=== PATIENT | female | born 2000 | race African-American/Black ===

== ENCOUNTER 2024-08-25 09:35 | Outpatient (REF) | payer MEDICAID, SELFPAY ==
[2024-08-25 10:59] LABS: MANUAL DIFF FLAG NO
[2024-08-25 11:10] LABS: Basophils Percent Auto 0.5 % (0-2); Eosinophils Absolute Auto 0.1 X10*3/uL (0.0-0.4); Eosinophils Percent Auto 1.6 % (0-4); Hematocrit 41.7 % (37.0-47.0); Hemoglobin 13.7 g/dl (12.0-16.0); Imm Gran Abs Auto 0.03 X10*3/uL (0.00-0.03); Imm Gran Pct Auto 0.5 % (0.0-0.4); Lymphocytes Absolute Auto 1.7 X10*3/uL (1.2-4.9); Lymphocytes Percent Auto 26.3 % (20-40); Mean Corpuscular HGB Conc 32.9 g/dl (31.0-35.0); Mean Corpuscular Hemoglobin 26.9 pg (27.0-33.0); Mean Corpuscular Volume 81.8 fL (80.0-98.0); Mean Platelet Volume 11.2 fL (9.4-12.3); Monocytes Absolute Auto 0.7 X10*3/uL (0.1-1.2); Monocytes Percent Auto 11.3 % (2-11); Neutrophils Absolute Auto 3.8 x10*3/uL (2.0-8.3); Neutrophils Percent Auto 59.8 % (45-73); Platelet Count 271 X10*3/uL (160-400); Red Cell Distribution Width 13.9 % (11.0-16.0); White Blood Count 6.4 X10*3/uL (4.8-10.8)
[2024-08-25 11:37] LABS: Alanine Aminotransferase 12 U/L (0-31); Albumin Level 3.9 g/dL (3.5-5.0); Alkaline Phosphatase 64 U/L (39-117); Anion Gap 11 (12-20); Aspartate Amino Transferase 20 U/L (5-31); Bilirubin Total 0.5 mg/dL (0.0-1.0); Blood Urea Nitrogen 9 mg/dL (9-16); Carbon Dioxide 21 mmol/L (22-29); Chloride 113 mmol/L (96-108); Cholesterol 123 mg/dL (<200); Estimated Glomerular Filt Rate > 60; Glucose Random 96 mg/dL (60-115); HDL Cholesterol 41 mg/dL (>40); LDL Cholesterol Calculated 69 mg/dL (<100); Potassium 3.9 mmol/L (3.3-5.1); Sodium 141 mmol/L (135-145); Total Protein 7.5 g/dL (6.5-8.0); Triglycerides 67 mg/dL (<150)
[2024-08-25 11:45] LABS: Syphilis Screen Nonreactive (Nonreactive)
[2024-08-25 11:57] LABS: TSH reflex Free T4 0.62 uIU/mL (0.32-4.0)
[2024-08-25 12:48] LABS: HBS Num1 703.34 mIU/mL (0-7.99); HBc Num1 0.17 S/CO (0.00-0.79); HBsAGNum1 0.28 S/CO (0.00-0.99); HIV AB/AG Nonreactive (Nonreactive); HIV Num 1 0.05 S/CO (0.00-0.99); Hepatitis A Antibody IgM 0.24 Index (0-0.79); Hepatitis B Core Antibody Nonreactive (Nonreactive); Hepatitis B Surface Antigen Negative (Negative); ~HepC Num1 0.18 S/CO (0.00-0.79); ~Hepatitis A Antibody IgM Nonreactive (Nonreactive); ~Hepatitis B Surface Antibody REACTIVE (Nonreactive); ~Hepatitis C Antibody Nonreactive (Nonreactive)
[2024-08-25 12:50] LABS: Reflex LDLD? No
== END 2024-08-25 09:36 | disposition home or self-care (01) ==
LOC: HO.HHCL 09:35
PROVIDERS: Visit Provider Internal Medicine
DX: F33.41 Major depressive disorder, recurrent, in partial remission (principal); E66.812 Obesity, class 2; E66.09 Other obesity due to excess calories; Z68.39 Body mass index [BMI] 39.0-39.9, adult; J45.30 Mild persistent asthma, uncomplicated
CPT/HCPCS: 36415; 80053; 80061; 82306; 84443; 85025; 86704; 86706; 86709; 86780; 86803; 87340; 87389

== ENCOUNTER 2024-09-18 15:44 | Outpatient (AMB) | payer MEDICAID, SELFPAY ==
[2024-09-18 15:53] VITALS: BP 120/72; PULSE 94; O2SAT 98; BMI 39.9
--- NOTE | 2024-09-18 15:53 | A.OFFVIS_ITS ---
Vital Signs 09/18/24 15:53 Height 5 ft 6 in Weight 247 lb BMI 39.9 BP 120/72 Blood Pressure Location Rt brachial Position Sitting Pulse 94 Pulse Source Pulse Oximeter Pulse Oximetry (%) 98 Oxygen Delivery Method Room Air Intake Visit Reasons: cyst arm Intake Note: Patient states she is here for cyst under her right arm near the armpit. Allergies pollen extracts [POLLEN] Allergy (Unknown, Verified 09/18/24 15:54) UNKNOWN Medication List - Last Reconciled 09/18/24 by Yannick Cardenas MD albuterol sulfate 90 mcg/actuation 2 puffs inhalation Q6H PRN medroxyprogesterone (Depo-Provera) 150 mg IM [id number] HPI HPI cyst arm: Details: [age] year old female referred for a skin lesion on the right upper arm. She says she has had this for a few years now. She denies any changes. She denies any bleeding. She however wants this removed. [facility] Medical History (Updated 09/18/24 @ 16:10 by Yannick Cardenas MD) Skin lesion of right arm Review of Systems Const Denies chills and Denies fever(s) Card Denies chest pain, Denies dyspnea and Denies dyspnea on exertion Resp Denies cough, Denies dyspnea and Denies dyspnea on exertion GI Denies hematochezia and Denies change in bowel habits Denies hematuria Musc Denies back pain and Denies limited range of motion Neuro Denies focal weakness and Denies convulsions Psych Denies depression and Denies mood swings Physical Exam Vital Signs: Last Vital Signs Pulse 94 09/18/24 15:53 BP 120/72 09/18/24 15:53 Pulse Ox 98 09/18/24 15:53 Oxygen Delivery Method Room Air 09/18/24 15:53 BMI result Body Mass Index 39.9 Const General: comfortable and no acute distress Nutritional Appearance: obese Orientation/consciousness: patient oriented x3 Neck Neck: Yes no lymphadenopathy Resp Auscultation: clear to auscultation bilaterally Cardio Rhythm: regular rhythm GI Palpation (GI): Soft to palpation, nontender and no guarding Neuro General: patient oriented x3 Extrem Other: Right upper arm on the inner aspect - soft, fleshy skin mass, about 1.2 cm in widest dimension, well-defined Assessment & Plan Assessment & Plan (1) Skin lesion of right arm: Code(s): L98.9 - Disorder of the skin and subcutaneous tissue, unspecified Category: Medical Plan This appears to be a fibromatous lesion. I explained the technique of excision. I reviewed the risks including but not limited to bleeding, infections, poor healing, as well as the benefits and alternatives. I discussed with the what to expect postoperatively. She wants to proceed. This will be done in the office on her next visit. Coding Level of Care Code New Pt Level 3 (83987) Diagnoses Skin lesion of right arm L98.9
== END 2024-09-18 16:08 | disposition home or self-care (01) ==
LOC: HO.HGS 15:45
PROVIDERS: PCP Family Medicine; Visit Provider Surgery
DX: L98.9 Disorder of the skin and subcutaneous tissue, unspecified (principal)
CPT/HCPCS: 99203

== ENCOUNTER → 2024-09-18 15:44 | Outpatient (BNVA) | payer MEDICAID, SELFPAY | PROVIDERS: PCP Family Medicine; Visit Provider Surgery | DX: L98.9 Disorder of the skin and subcutaneous tissue, unspecified (principal) | CPT/HCPCS: 99202 ==

== ENCOUNTER 2024-10-05 12:43 | Outpatient (REF) | payer MEDICAID, SELFPAY ==
--- OUTSIDE RECORDS SUMMARY | 2024-10-05 16:18 | XMS_ITS | Encounter Summary ---
Author Organization [employer] Address [address] [facility] 7t [place] [address] Care Team Providers Care Cat Sitter Name Role Phone Suellen Galarza Primary Care Provider [phone]- [phone] Misbah East Primary Care Provider Unavail able Nathalie Powell MD Primary Care Provide r Deysi Panchal MD Primary Care Provider + Reason for Visit * Reason Onset Date Comments Appointment Request 12/10/2022 Encounter Details Date Type Department Care Team (Late st Contact Info) Description 12/10/[address] [facility] [address] [place] [address] Suellen Galarza FNP [address] [place] [address] [place] [address] Appointment Request Social History Tobacco Use Types [...] pt regarding message below. Pt agrees to [place] for Depo on 01/26 as pt returns [...] Description 10/19/2024 1:00 PM EDT Clinical Support [address] [address] 11/09/2024 11:30 AM EDT Office Visit [facility] [address] [place] [phone] Deysi Panchal MD [address] [place] [phone] documented as of this encounter Visit Diagnoses Not on filedocumented in this encounter Care Teams Cat Sitter Relationship Specialty Start Date End Date Suellen Galarza FNP PCP - General Family Medicine 02/19/22 01/03/23 Misbah East AGNP PCP - General Family Medicine 01/04/23 03/04/23 Nathalie Powell MD [address] [place] [address] PCP - General Internal Medicine 03/05/23 07/26/24 Deysi Panchal MD [address] [place] [phone] PCP - General Internal Medicine 07/27/24 documented as of this encounter
--- OUTSIDE RECORDS SUMMARY | 2024-10-05 16:18 | XMS_ITS | Clinical Summary ---
Author Organization [employer] Address [address] [facility] 7t [place] [address] Care Team Providers Care Service Center Assistant Name Role Phone Deysi Panchal MD Primary [...] Team Description 09/08/2024 Population Health Risk Score [facility] (C3) Department [address] [place] [phone] Provider, Population Health [facility] 08/31/2024 Orders Only [facility] [place] [address] Lela Colon, JUAN 08/25/2024 9:15 AM EST Office Visit [facility] [place] [place] [address] Deysi Panchal MD Mild persistent asthma without complication (Primary Dx); Recurrent major depressive disorder, in partial remission (CMS/HCC); Exercise counseling; Seasonal allergies; Class 2 obesity due to excess calories without serious comorbidity with body mass index (BMI) of 39.0 to 39.9 in adult; Dermoid cyst of arm, right; Skin tag; Dietary counseling 08/25/2024 Travel 08/22/2024 Telephone [facility] [place] [address] Deysi Panchal MD Chart prep 08/11/2024 Patient Outreach [facility] [address] Deysi Panchal MD Pre-visit Planning (Unable to complete PVP screening patient ended call) 08/02/2024 Orders Only [facility] [place] [address] Lela Colon, JUAN 07/27/2024 1:00 PM EST Clinical Support [facility] [address] Juanita Carlos, JUAN Encounter for management and injection of injectable progestin contraceptive 07/27/2024 Travel 07/27/2024 Refill [facility] [address] Juanita Carlos, JUAN Encounter for management and [...] Description 10/19/2024 1:00 PM EDT Clinical Support [address] [address] 11/09/2024 11:30 AM EDT Office Visit [address] [address] Deysi Panchal MD [address] [place] [phone] Health Maintenance Due Date Last Done Comments [...] 9:38 AM EST) Syphilis Screen Nonreactive Nonreactive [facility] Blood 08/25/2024 9:38 AM EST 08/25/2024 10:54 AM EST us Deysi Panchal MD LAB BLOOD ORDERABLES Fin al Result [facility] [address] [place] [phone] * (ABNORMAL) Vitamin D, 25-Hydroxy, Total, Immunoassay (08/25/2024 9:38 AM EST) Vitamin D 25-OH Total 15.0(L) >30 ng/mL [facility] Comment:Health Based Referen ce Values*< 20 ng/mL Oszpqvlca94-10 ng/mL Insufficient> 30 ng/mL Sufficient*Jose DE LEON. [...] ORDERABLES Fin al Result Performing Organization Address [facility] Co de Phone Number [facility] [address] [place] [phone] * TSH with Reflex to Free T4 (08/25/2024 9:38 AM EST) TSH reflex Free T4 0.62 0.32 - 4.0 uIU/mL [facility] Blood 08/25/2024 9:38 AM EST 08/25/2024 10:54 AM EST Deysi Panchal MD LAB BLOOD ORDERABLES Fin al Result Performing Organization Address [facility] Co de Phone Number [facility] [address] [place] [phone] * Lipid Panel with Reflex to Direct LDL (08/25/2024 9:38 AM EST) Triglycerides 67 <150 mg/dL [facility] Comment:Desirable Triglyceri de: less than 150 mg/dLBorderline High Triglyceride 150-199 mg/dLHigh Triglyceride: 200-499 mg/dLVery High Triglyceride: greater than or equal to 5OO mg/dL Cholesterol 123 <200 mg/dL [facility] Comment:Desirable Cholestero l: less than 200 mg/dLBorderline High Cholesterol: 200-239 mg/dLHigh Cholesterol: greater than 239 mg/dL LDL Cholesterol Calculated 69 <100 mg/dL [facility] Comment:Desirable LDL: less than 100 mg/dLNear Optimal/Above Optimal LDL: 110- 129 mg/dLBorderline High LDL: 130-159 mg/dLHigh LDL: 160-189 mg/dLVery High LDL: greater than or equal to 190 mg/dL HDL Cholesterol 41 >40 mg/dL [facility] Comment:Desirable HDL: great er than 40 mg/dL Note: This HDL assay may give artificially low results in patients with liver disease. Blood 08/25/2024 9:38 AM EST 08/25/2024 10:54 AM EST Deysi Panchal MD LAB BLOOD ORDERABLES Fin al Result Performing Organization Address [facility]/ZIP Co de Phone Number [facility] [address] [place] [address] [phone] * Hepatitis Panel, General (08/25/2024 9:38 AM EST) Hepatitis A IgM Nonreactive Nonreactive [facility] Comment:IgM antibodies to ROCHE V not detected; does not exclude earlyacute or recovered HAV infection. ~Hepatitis B Surface Antibody REACTIVE Nonreactive [facility] Comment:REACTIVE: > 11.99 mI U/mL Hepatitis B Core Antibody Nonreactive Nonreactive [facility] Hepatitis C Antibody Nonreactive Nonreactive [facility] Comment:Antibodies to HCV no t detected; does not exclude early acuteHCV infection. Hepatitis B Surface Ag Negative Negative [facility] Blood 08/25/2024 9:38 AM EST 08/25/2024 10:54 AM EST us Deysi Panchal MD LAB BLOOD ORDERABLES Fin al Result Performing Organization Address [facility]/ZIP Co de Phone Number [facility] [address] [place] [phone] * (ABNORMAL) CBC auto differential (08/25/2024 9:38 AM EST) White Blood Count 6.4 4.8 - 10.8 X10*3/uL [facility] Red Blood Count 5.10 4.20 - 5.50 X10*6/uL [facility] Hemoglobin 13.7 12.0 - 16.0 g/dl [facility] Hematocrit 41.7 37.0 - 47.0 % [facility] Mean Corpuscular Volume 81.8 80.0 - 98.0 fL [facility] Mean Corpuscular Hemoglobin 26.9(L) 27.0 - 33.0 pg [facility] Mean Corpuscular HGB Conc 32.9 31.0 - 35.0 g/dl [facility] Red Cell Distribution Width 13.9 11.0 - 16.0 % [facility] Platelet Count 271 160 - 400 X10*3/uL [facility] Mean Platelet Volume 11.2 9.4 - 12.3 fL [facility] Neutrophils Percent Auto 59.8 45 - 73 % [facility] Imm Gran Pct Auto 0.5(H) 0.0 - 0.4 % [facility] Lymphocytes Percent Auto 26.3 20 - 40 % [facility] Monocytes Percent Auto 11.3(H) 2 - 11 % [facility] Eosinophils Percent Auto 1.6 0 - 4 % [facility] Basophils Percent Auto 0.5 0 - 2 % [facility] NRBC Pct Auto 0.0 0.0 - 0.2 /100WBC [facility] Neutrophils Absolute Auto 3.8 2.0 - 8.3 x10*3/uL [facility] Imm Gran Abs Auto 0.03 0.00 - 0.03 X10*3/uL [facility] Lymphocytes Absolute Auto 1.7 1.2 - 4.9 X10*3/uL [facility] Monocytes Absolute Auto 0.7 0.1 - 1.2 X10*3/uL [facility] Eosinophils Absolute Auto 0.1 0.0 - 0.4 X10*3/uL [facility] Basophils Absolute Auto 0.0 0.0 - 0.2 X10*3/uL [facility] NRBC Abs Auto 0.000 0.0 - 0.012 X10*3/uL [facility] Blood Venous blood specimen / Unknown 08/25/2024 9:38 AM EST 08/25/2024 10:54 AM EST us Deysi Panchal MD LAB BLOOD ORDERABLES Fin al Result [facility] [address] [place] [phone] * HIV-1/2 Antigen and Antibodies, Fourth Generation, with Reflexes (08/25/2024 9:38 AM EST) HIV AB/AG Nonreactive Nonreactive [facility] Comment:HIV-1 p24 Ag and/or HIV-1/HIV-2 Ab not detected.A test result that is nonreactive does not exclude thepossibility of exposure to or infection with HIV-1 and/orHIV-2. Nonreactive results in this assay for individualswith prior exposure to HIV-1 and/or HIV-2 may be due toantigen and antibody levels that are below the limit ofdetection of this assay.The iGen6 HIV Ag/Ab Combo assay result andsupplemental assay results should be interpreted inconjunction with the patient's clinical presentation,history and other laboratory results. If the results areinconsistent with clinical evidence, additional testing issuggested to confirm the result. Blood Venous blood specimen / Unknown 08/25/2024 9:38 AM EST 08/25/2024 10:54 AM EST us Deysi Panchal MD LAB BLOOD ORDERABLES Fin al Result Performing Organization Address [facility]/ZIP Co de Phone Number [facility] [address] [place] [phone] * (ABNORMAL) Comprehensive Metabolic Panel (08/25/2024 9:38 AM EST) Pathologist [facility] Sodium 141 135 - 145 mmol/L [facility] Potassium 3.9 3.3 - 5.1 mmol/L [facility] Chloride 113(H) 96 - 108 mmol/L [facility] Carbon Dioxide 21(L) 22 - 29 mmol/L [facility] Anion Gap 11(L) 12 - 20 [facility] Urea Nitrogen (BUN) 9 9 - 16 mg/dL [facility] Creatinine, Serum 0.71 0.5 - 1.4 mg/dL [facility] Estimated Glomerular Filt Rate >60 [facility] Comment:Chronic Kidney Disea se: Estimated GFR < 60 mL/min/1.57x7Jkmrkh Kidney Disease: Estimated GFR < 15 mL/min/1.73m2 Glucose 96 60 - 115 mg/dL [facility] Calcium 9.0 8.4 - 10.2 mg/dL [facility] Bilirubin, Total 0.5 0.0 - 1.0 mg/dL [facility] Aspartate Amino Transferase 20 5 - 31 U/L [facility] Alanine Aminotransferase 12 0 - 31 U/L [facility] Total Protein 7.5 6.5 - 8.0 g/dL [facility] Albumin Level 3.9 3.5 - 5.0 g/dL [facility] Alkaline Phosphatase 64 39 - 117 U/L [facility] Blood Venous blood specimen / Unknown 08/25/2024 9:38 AM EST 08/25/2024 10:54 AM EST Deysi Panchal MD LAB BLOOD ORDERABLES Fin al Result [facility] [address] [place] [phone] * Chlamydia/Gonorrhea Vaginal Swab ([facility]) (08/23/2024) Only the most recent of2 resultswithin the time period is included. Chlamydia Vaginal Swab Negative Negative, Indeterminate, None Detected, Invalid, Specimen unsatisfactory for evaluation, Weakly Positive Gonorrhea Vaginal Swab Negative Negative, Indeterminate, None Detected, Invalid, Specimen unsatisfactory for evaluation, Weakly Positive Swab Vaginal structure / Unknown 08/23/2024 Historical Provider LAB MICROBIOLOGY - GENERA L ORDERABLES Final Result * Chlamydia/Gonorrhea Throat Swab ([facility]) (08/23/2024) Chlamydia Throat Swab Negative Gonorrhea Throat Swab Negative Swab 08/23/2024 Result [facility] Provider MD LAB MICROBIOLOGY - GENERA L ORDERABLES Final Result * Syphilis Antibodies ([facility]) (08/23/2024) Only the most recent of2 resultswithin the time period is included. Pathologist [facility] Syphilis Abs Nonreactive Borderline, Nonreactive, Weakly Reactive, Inconclusive, Specimen unsatisfactory for evaluation Blood Venous blood specimen / Unknown 08/23/2024 Result [facility] Provider MD LAB BLOOD ORDERABLES Purvi l Result * Hepatitis C Antibody ([place] [facility]) (08/23/2024) Only the most recent of2 resultswithin the time period is included. [facility] Hepatitis C Ab Nonreactive Blood 08/23/2024 Result [facility] MD LAB BLOOD ORDERABLES Purvi l Result * HIV Ab/Ag ([place] [facility]) (08/23/2024) Only the most recent of2 resultswithin the time period is included. [facility] HIV Ag/Ab Nonreactive Blood 08/23/2024 Result [facility] MD LAB BLOOD ORDERABLES Purvi l Result * POCT Urine (07/27/2024 1:56 PM EST) [facility] Preg Test, Ur Negative Negative, Indeterminate, None Detected, Invalid, Specimen unsatisfactory for evaluation, Weakly Positive QC Media Lot # [id number] Lot# Expiration Date [id number] Urine 07/27/2024 1:56 PM EST Result [facility] Cortney Olivas DO POINT OF CARE TEST ENTER/ADAM T ORDERABLES Final Result * THINPREP TIS PAP (06/24/2021 12:00 AM EST) [facility] Clinical Information: None given [facility] [...] has been evaluated with computer assisted technology. [facility] Call Center Receptionist : SEE COMMENT [facility] Comment: MSM, CT(ASCP) CT screening location: [address] ??[phone] Interpretation/R esult: Negative for intraepithelial lesion or malignancy. [facility] LMP: NONE GIVEN [facility] Prev. BX: NONE GIVEN [facility] Prev. PAP: NONE GIVEN [facility] Review Call Center Receptionist : SEE COMMENT [facility] Comment: CMG, CT(ASCP) CT screening location: [address] ??[phone] SOURCE: None given [facility] Statement Of Adequacy: SEE COMMENT [facility] Comment: Satisfactory for evaluation. Endocervical/transformation zone component absent. Age and/or menstrual status not provided 06/24/2021 Effie Haile NP LAB PATHOLOGY ORDERABLES Final Result Performing Organization Address City/State/[facility] Co de Phone Number [facility] [address] from Last 3 Months or Most Recently Relevant to Health Maintenance Insurance [facility] [employer] C[facility] Care Teams Service Center Assistant Relationship Specialty Start Date End Date Deysi Panchal MD [address] [place] [phone] PCP - General Internal Medicine 07/27/24
== END 2024-10-05 12:44 | disposition home or self-care (01) ==
LOC: HO.LNP 12:43
PROVIDERS: PCP Family Medicine; Visit Provider Surgery
DX: L98.9 Disorder of the skin and subcutaneous tissue, unspecified (principal)
CPT/HCPCS: 11403; 88304

== ENCOUNTER 2024-10-05 12:43 | Outpatient (AMB) | payer MEDICAID, SELFPAY ==
--- NOTE | 2024-10-05 13:02 | MHC.OFFVIS ---
Intake Visit Reasons: excision cyst arm Intake Note: Patient here for cyst excision on Rt arm. Allergies pollen extracts [POLLEN] Allergy (Unknown, Verified 09/18/24 15:54) UNKNOWN HPI HPI excision cyst arm: Details: She is here for excision of a skin lesion from the right arm. [facility] Medical History (Updated 09/18/24 @ 16:10 by Yannick Cardenas MD) Skin lesion of right arm Office Procedures Excision Details: She was placed in supine position. The area of the skin lesion of the right arm was prepped and draped. Lidocaine 1% was used for local anesthesia. I made an elliptical incision in the skin around this lesion using blade 15. This was a soft subcutaneous mass that extended the layers consistent with a lipoma. The lesion was about 2.9 cm in diameter. This was carried down through the full-thickness of the skin and part of the subcutaneous layer to excise the entire lesion. This was sent as a specimen. I closed the incision with full-thickness nylon 3-0 simple interrupted sutures. Dressings were applied. She tolerated the procedure well. There were no immediate complications. There was minimal blood loss [id number]/arms/legs 2.1-3cm Procedure code (CPT) selection complete Assessment & Plan Assessment & Plan (1) Skin lesion of right arm: Code(s): L98.9 - Disorder of the skin and subcutaneous tissue, unspecified Category: Medical Plan: Excision was done in the office. She tolerated procedure well. She was given wound care instructions. She will be seen office for follow-up for removal sutures Coding Level of Care Code Procedure Only Diagnoses Skin lesion of right arm L98.9 CPT Codes Trunk/Arms/Legs - CPT: [id number]/arms/legs 2.1-3cm ([id number])
--- OUTSIDE RECORDS SUMMARY | 2024-10-05 15:10 | XMS_ITS | Encounter Summary ---
Author Organization [employer] Address [address] [place] [address] Care Team Providers Care Human Services Worker Name Role Phone Suellen Galarza Primary Care Provider [phone]- [phone] Misbah East Primary Care Provider Unavail able Nathalie Powell MD Primary Care Provide r Deysi Panchal MD Primary Care Provider + Reason for Visit * Reason Onset Date Comments Appointment Request 12/10/2022 Encounter Details Date Type Department Care Team (Late st Contact Info) Description 12/10/2022 Telephone [facility] [address] [place] [address] Suellen Galarza FNP [address] [place] [address] [place] [address] Appointment Request Social History Tobacco Use Types Packs/Day Years Used Date Smoking Tobacco: Never Assessed Comments No Sex and Gender Information Value Date Recorded Sex Assigned at Female 04/27/2022 10:18 AM EDT Legal Sex Female 10:18 AM EDT Gender Identity Female 04/27/2022 10:18 AM EDT Sexual Orientation Straight 11/10/2022 2: 04 PM EDT documented as of this encounter Miscellaneous Notes * Telephone Encounter - Carina Mcadams RN - 12/10/2022 2:04 PM EDT Returned call to pt regarding message below. Pt agrees to [place] for Depo on 01/26 as pt returns from a trip on the week of her window. * Telephone Encounter - Kelly Rizzo - 12/10/2022 8:29 AM EDT Tc from patient requesting an appt for a depo shot for December. Patient is available from 9-11 am and after 3 pm. documented in this encounter Plan of Treatment Upcoming Encounters Date Type Department Care Team (Late st Contact Info) Description 10/19/2024 1:00 PM EDT Clinical Support [address] [id number] 11/09/2024 11:30 AM EDT Office Visit [facility] [address] [place] [id number] Deysi Panchal MD [address] [place] [phone] documented as of this encounter Visit Diagnoses Not on filedocumented in this encounter Care Teams Human Services Worker Relationship Specialty Start Date End Date Suellen Galarza FNP PCP - General Family Medicine 02/19/22 01/03/23 Misbah East AGNP PCP - General Family Medicine 01/04/23 03/04/23 Nathalie Powell MD [address] [place] [id number] PCP - General Internal Medicine 03/05/23 07/26/24 Deysi Panchal MD [address] [place] [id number] PCP - General Internal Medicine 07/27/24 documented as of this encounter
--- OUTSIDE RECORDS SUMMARY | 2024-10-05 15:10 | XMS_ITS | Clinical Summary ---
Author Organization [facility] Address [address] [facility] [address] [place] [address] Care Team Providers Care Flaring Machine Operator Name Role Phone Deysi Panchal MD Primary Care Provider + Allergies No known active allergies Medications emtricitabine-ten ofovir DF (Truvada) 200-300 MG tablet Take 1 tablet by mouth in the morning. 30 tablet 2 11/14/19 23 Active Dextromethorphan- guaiFENesin (Mucinex DM) 30-600 MG tablet sustained-release 12 hour Use 1 tab TID 28 tablet 04/17/20 24 Active medroxyPROGESTERo ne (Depo-Provera) 150 MG/ML injectionIndicati ons:Encounter for management and injection of injectable progestin contraceptive inject (150MG) by intramuscular route every 3 months 1 mL 3 07/27/19 25 Active albuterol (Ventolin HFA) 108 (90 Base) MCG/ACT inhaler INHALE 2 PUFFS EVERY 4 TO 6 HOURS NEEDED 18 g 08/25/19 25 Active Active Problems Problem Noted Date Diagnosed Date Seasonal allergies 08/25/2024 Assessment & Plan (08/25/2024 9:38 AM EST): Mostly allergic rhinitis, will treat as needed with Flonase or antihistaminic as needed Recurrent major depressive disorder, in partial remission 08/25/2024 Assessment & Plan (08/25/2024 9:38 AM EST): Patient seems to be doing well at this time, she feels safe at home and is able to reach out for safety. We discussed about crisis number, to come into walk-in center as needed symptoms. She declined MH evaluation for now, follow-up in 4 to 6 weeks Order labs Advised to cut down on THC products. Mild persistent asthma without complication 07/30 Assessment & Plan (08/25/2024 9:36 AM EST): Start using albuterol as needed, keep track of symptoms and follow-up with me in 4 to 6 weeks. Declined influenza or COVID immunization today. Advised to cut down THC smoking. Class 2 obesity due to exces s calories without serious comorbidity with body mass index (BMI) of 39.0 to 39.9 in adult 08/25/2024 Assessment & Plan (08/25/2024 9:39 AM EST): Discussed re weight reduction options including exercise, life style modifications, diet. Recommended to decrease soda and sugary beverage consumption, increase protein intake with meals (at least 1 portion of protein with each meal) to assist with satiety, increase dietary fiber Recommended at least 150 min/week of moderate intensity exercise. Order labs Will follow-up next appointment in the discussed about nutrition referral and and medication management if needed Dermoid cyst of arm, right 08/25/2024 Assessment & Plan (08/25/2024 9:36 AM EST): Patient wants to resected, will refer to general surgery. Skin tag 08/25/2024 Assessment & Plan (08/25/2024 9:39 AM EST): The skin tag is grasped firmly with stainless steel forceps. The base of the lesion is treated with liquid nitrogen spray for 3 seconds each time, total of up to 10 seconds. The procedure was repeated on the rest of the lesion until it turn white in some areas, then red. Patient will keep the area clean and dry, apply Vaseline to the surrounding skin daily until lesion falls off. FU in 4-6w Moderate major depression 10/25/20182023 Gastritis 04/26/2018 08/03/2023 Encounters Date Type Department Care Team Description 09/08/2024 Population Health Risk Score [facility] (C3) Department [address] [place] [phone] Provider, Population Health [facility] 08/31/2024 Orders Only [facility] [place] [address] Lela Colon, JUAN 08/25/2024 9:15 AM EST Office Visit [facility] [place] [address] Deysi Panchal MD Mild persistent asthma without complication (Primary Dx); Recurrent major depressive disorder, in partial remission (CMS/HCC); Exercise counseling; Seasonal allergies; Class 2 obesity due to excess calories without serious comorbidity with body mass index (BMI) of 39.0 to 39.9 in adult; Dermoid cyst of arm, right; Skin tag; Dietary counseling 08/25/2024 Travel 08/22/2024 Telephone [facility] [place] [address] Deysi Panchal MD Chart prep 08/11/2024 Patient Outreach [facility] [place] [address] Deysi Panchal MD Pre-visit Planning (Unable to complete PVP screening patient ended call) 08/02/2024 Orders Only [facility] [place] [address] Lela Colon, JUAN 07/27/2024 1:00 PM EST Clinical Support [facility] [place] [address] Juanita Carlos, JUAN Encounter for management and injection of injectable progestin contraceptive 07/27/2024 Travel 07/27/2024 Refill [facility] [place] [address] Juanita Carlos, JUAN Encounter for management and injection of injectable progestin contraceptive from Last 3 Months Immunizations Name Administration Dates Next Due DTaP, 5 pertussis antigens 2000 HPV, Quadrivalent 08/24/2013, 2,06/11/2011,03/30 Hep A, ped/adol, 2 dose 01/03/2016,04/01/2015 Hep B, Adolescent or Pediatric 2000,1999,2000 Hep B, adult 04/14/2021 Hib (HbOC) 04/20/2001, 1,2000,03/24 IPV 01/24/2004, 1,2000,03/24 Influenza injectable quadriv alent IIV4 with preservative 04/01/2015 Influenza injectable quadriv alent preservative free 04/13/2023,03/09/2022,04/14/2021,06/05,04/09/2017,04/04/2014 Influenza, Split (incl. felicia fied surface antigen) 05/16/2012 MMR 01/24/2004,01/19/2001 Meningococcal MCV4P [id number]-135 10/25/2018,05/16/20 12 Pneumococcal Conjugate PCV 7 11/24/2001, 07/27/2001,2000,07/20 Tdap 05/16/2012 Varicella 06/11/2011,01/19/2001 Social History Tobacco Use Types Packs/Day Years Used Date Smoking Tobacco: Never Smokeless Tobacco: Never Tobacco Cessation:Counseling Given: Not Answered Alcohol Use Standard Drinks/Week Comments Not Currently 0 (1 standard drink = 0.6 oz pur e alcohol) 1-2/month Housing Stability Answer Date Recorded What is your housing situation today? I have elizabeth schmid 08/25/[address] you li ve. Do you have problems with any of the following? None of the above 08/25/2024 Food Insecurity Answer Date Recorded Within the past 12 months, y ou worried that your food would run out before you got money to buy more: Never True 08/25/2024 Within the past 12 months,th e food you bought just didn't last and you didn't have enough money to get more: Never True Transportation Answer Date Recorded In the past 12 months, has l ack of transportation kept you from medical appts, meetings, work or from getting things needed for daily living? No 08/25/2024 Utilities Answer Date Recorded In the past 12 months, has t he electric, gas, oil or water company threatened to shut off services in your home? No 08/25/2024 Depression Answer Date Recorded Patient Health Questionnaire-2 Score 0 08/25/2024 Internet Access Answer Date Recorded Internet Access Q1 No 08/25/2024 Internet Access Q2 I do not want or need it 07/30 Comments No Sex and Gender Information Value Date Recorded Sex Assigned at Female 04/27/2022 10:18 AM EDT Legal Sex Female 10:18 AM EDT Gender Identity Female 04/27/2022 10:18 AM EDT Sexual Orientation Straight 11/10/2022 2: 04 PM EDT Last Filed Vital Signs Vital Sign Reading Time Taken Comments Blood Pressure 129/77 08/25/2024 8:57 AM EST Pulse 90 08/25/2024 8:57 AM EST Temperature 35.9 ??C (96.7 ??F) 08/25/2024 8:57 AM ES T Respiratory Rate 20 08/25/2024 8:57 AM EST Oxygen Saturation 97% 08/25/2024 8:57 AM EST Inhaled Oxygen Concentration - - Weight 113 kg (248 lb 2 oz) 08/25/2024 8:[address] Height 169.9 cm (5' 6.88 ) 08/25/2024 8:57 AM ES T Body Mass Index 39 08/25/2024 8:57 AM EST Plan of Treatment Upcoming Encounters Date Type Department Care Team (Late st Contact Info) Description 10/19/2024 1:00 PM EDT Clinical Support [address] [address] 11/09/2024 11:30 AM EDT Office Visit [address] [address] Deysi Panchal MD [address] [place] [phone] Health Maintenance Due Date Last Done Comments Alcohol/Substance Use Screening 2012 Pneumococcal Vaccine: Pediatrics (0 to 5 Years) and At-Risk Patients (6 to 49) Years) (1 of 2 - PCV) 01/17/2019 11/24/2001, 07/27/2001, 2000, Additional history exists DTaP/Tdap/Td Vaccines (3 - Td or Tdap) 05/16/2022 05/16/2012, 2000 COVID-19 Vaccine ( season) 2024 03/23/2021, 10/08/2020 Influenza Vaccine (#1) 2024 , 03/09/2022, 04/14/2021, Additional history exists Pap Smear 06/24/2024 06/24/2021 Family Planning (PISQ) 07/27/2025 07/27/2024 Depression Screening 08/25/2025 08/25/2024, 08/25/19 25 SDOH Screening 08/25/2025 08/25/2024 Tobacco Screening 08/25/2025 08/25/2024 Lipid Panel 08/25/2029 08/25/2024, 11/04/2021 Zoster Vaccines (1 of 2) 01/17/2050 RSV Patients and Patients Aged 60 years or older (1 - 1-dose 75+ series) 01/17/2075 HIB Vaccines Completed 04/20/2001, 06/29, 2000, Additional history exists IPV Vaccines Completed 01/24/2004, 06/29, 2000, Additional history exists HPV Vaccines Completed 08/24/2013, 09/26, 06/11/2011, Additional history exists Hepatitis A Vaccines Completed 01/03/2016, 04/01/20 15 Meningococcal Vaccine Completed 10/25/2018, 012 Hepatitis B Vaccines Completed 04/14/2021, 2000, 2000, Additional history exists HIV Screening Completed 08/25/2024, 07/30, 07/27/2024, Additional history exists Hepatitis C Screening Completed 08/25/2024 , 08/23/2024, 07/27/2024, Additional history exists RSV under 20 months Aged Out No longe r eligible based on patient's age to complete this topic Rotavirus Vaccines Aged Out No longer eligible based on patient's age to complete this topic Procedures Procedure Name Priority Date/Time Associated Diagnosis Comments CBC WITH AUTO DIFFERENTIAL Routine 08/25/2024 9:38 AM EST Recurrent major depressive disorder, in partial remission (CMS/HCC) VITAMIN D,25-OH,TOTAL,IA Routine 08/25/2024 9:38 AM EST Recurrent major depressive disorder, in partial remission (CMS/HCC) Mild persistent asthma without complication TSH W/REFLEX TO FT4 Routine 08/25/2024 9 :38 AM EST Class 2 obesity due to excess calories without serious comorbidity with body mass index (BMI) of 39.0 to 39.9 in adult SYPHILIS SCREEN Routine 08/25/2024 9:38 AM EST Mild persistent asthma without complication HEPATITIS PANEL, GENERAL Routine 08/25/2024 9:38 AM EST Mild persistent asthma without complication HIV 1/2 ANTIGEN/ANTIBODY, FOURTH GENERATION W/RFL Routine 08/25/2024 9:38 AM EST Mild persistent asthma without complication LIPID PANEL WITH REFLEX TO DIRECT LDL Routine 08/25/2024 9:38 AM EST Class 2 obesity due to excess calories without serious comorbidity with body mass index (BMI) of 39.0 to 39.9 in adult COMPREHENSIVE METABOLIC PANEL Routine 08/25/2024 9:38 AM EST Recurrent major depressive disorder, in partial remission (CMS/HCC) Class 2 obesity due to excess calories without serious comorbidity with body mass index (BMI) of 39.0 to 39.9 in adult HIV ANTIBODY/ANTIGEN ([place] [facility]) Routine 08/23/2024 HEPATITIS C ANTIBODY ([facility]) Routine 08/23/2024 SYPHILIS ABS ([facility]) Routine 08/23/2024 CHLAMYDIA/GONORRHEA THROAT SWAB ([facility]) Routine 08/23/2024 CHLAMYDIA/GONORRHEA VAGINAL SWAB ([facility]) Routine 08/23/2024 POCT , URINE Routine 07/27/2024 1:56 PM EST Encounter for management and injection of injectable progestin contraceptive HIV ANTIBODY/ANTIGEN ([place] [facility]) Routine 07/27/2024 HEPATITIS C ANTIBODY ([place] [facility]) Routine 07/27/2024 SYPHILIS ABS ([place] [facility]) Routine 07/27/2024 CHLAMYDIA/GONORRHEA VAGINAL SWAB ([place] [facility]) Routine 07/27/2024 THINPREP IMAGING SYSTEM PAP Routine 06/24/2021 12:00 AM EST from Last 3 Months or Most Recently Relevant to Health Maintenance Results * Syphilis Screen (08/25/2024 9:38 AM EST) Syphilis Screen Nonreactive Nonreactive [facility] Blood 08/25/2024 9:38 AM EST 08/25/2024 10:54 AM EST us Deysi Panchal MD LAB BLOOD ORDERABLES Fin al Result [facility] [address] [place] [phone] * (ABNORMAL) Vitamin D, 25-Hydroxy, Total, Immunoassay (08/25/2024 9:38 AM EST) Vitamin D 25-OH Total 15.0(L) >30 ng/mL [facility] Comment:Health Based Referen ce Values*< 20 ng/mL Hcztvieoc68-59 ng/mL Insufficient> 30 ng/mL Sufficient*Jose DE LEON. N Engl J Med. 2007;357:266-280Care must be taken in interpreting Vitamin D results fromdifferent laboratories and methodologies. Published datademonstrated that results from patients undergoinghemodialysis may show a negative bias when tested withvarious automated 25-OH vitamin D assays when compared toLC-MS/MS.When testing samples from patients whose predominant form ofVitamin D is Vitamin D2, such as patients receiving VitaminD2 supplementation, results that are subtherapeutic shouldbe confirmed with another method such as LC-MS/MS. Blood 08/25/2024 9:38 AM EST 08/25/2024 10:54 AM EST Deysi Panchal MD LAB BLOOD ORDERABLES Fin al Result Performing Organization Address [facility] Co de Phone Number [facility] [address] [place] [phone] * TSH with Reflex to Free T4 (08/25/2024 9:38 AM EST) TSH reflex Free T4 0.62 0.32 - 4.0 uIU/mL [facility] Blood 08/25/2024 9:38 AM EST 08/25/2024 10:54 AM EST Deysi Panchal MD LAB BLOOD ORDERABLES Fin al Result Performing Organization Address [facility] Co de Phone Number [facility] [address] [place] [phone] * Lipid Panel with Reflex to Direct LDL (08/25/2024 9:38 AM EST) Triglycerides 67 <150 mg/dL [facility] Comment:Desirable Triglyceri de: less than 150 mg/dLBorderline High Triglyceride 150-199 mg/dLHigh Triglyceride: 200-499 mg/dLVery High Triglyceride: greater than or equal to 5OO mg/dL Cholesterol 123 <200 mg/dL [facility] Comment:Desirable Cholestero l: less than 200 mg/dLBorderline High Cholesterol: 200-239 mg/dLHigh Cholesterol: greater than 239 mg/dL LDL Cholesterol Calculated 69 <100 mg/dL [facility] Comment:Desirable LDL: less than 100 mg/dLNear Optimal/Above Optimal LDL: 110- 129 mg/dLBorderline High LDL: 130-159 mg/dLHigh LDL: 160-189 mg/dLVery High LDL: greater than or equal to 190 mg/dL HDL Cholesterol 41 >40 mg/dL [facility] Comment:Desirable HDL: great er than 40 mg/dL Note: This HDL assay may give artificially low results in patients with liver disease. Blood 08/25/2024 9:38 AM EST 08/25/2024 10:54 AM EST Deysi Panchal MD LAB BLOOD ORDERABLES Fin al Result Performing Organization Address [facility]/ZIP Co de Phone Number [facility] [address] [place] [phone] * Hepatitis Panel, General (08/25/2024 9:38 AM EST) Hepatitis A IgM Nonreactive Nonreactive [facility] Comment:IgM antibodies to ROCHE V not detected; does not exclude earlyacute or recovered HAV infection. ~Hepatitis B Surface Antibody REACTIVE Nonreactive [facility] Comment:REACTIVE: > 11.99 mI U/mL Hepatitis B Core Antibody Nonreactive Nonreactive [facility] Hepatitis C Antibody Nonreactive Nonreactive [facility] Comment:Antibodies to HCV no t detected; does not exclude early acuteHCV infection. Hepatitis B Surface Ag Negative Negative [facility] Blood 08/25/2024 9:38 AM EST 08/25/2024 10:54 AM EST us Deysi Panchal MD LAB BLOOD ORDERABLES Fin al Result Performing Organization Address [facility]/ZIP Co de Phone Number [facility] [address] [place] [phone] * (ABNORMAL) CBC auto differential (08/25/2024 9:38 AM EST) White Blood Count 6.4 4.8 - 10.8 X10*3/uL [facility] Red Blood Count 5.10 4.20 - 5.50 X10*6/uL [facility] Hemoglobin 13.7 12.0 - 16.0 g/dl [facility] Hematocrit 41.7 37.0 - 47.0 % [facility] Mean Corpuscular Volume 81.8 80.0 - 98.0 fL [facility] Mean Corpuscular Hemoglobin 26.9(L) 27.0 - 33.0 pg [facility] Mean Corpuscular HGB Conc 32.9 31.0 - 35.0 g/dl [facility] Red Cell Distribution Width 13.9 11.0 - 16.0 % [facility] Platelet Count 271 160 - 400 X10*3/uL [facility] Mean Platelet Volume 11.2 9.4 - 12.3 fL [facility] Neutrophils Percent Auto 59.8 45 - 73 % [facility] Imm Gran Pct Auto 0.5(H) 0.0 - 0.4 % [facility] Lymphocytes Percent Auto 26.3 20 - 40 % [facility] Monocytes Percent Auto 11.3(H) 2 - 11 % [facility] Eosinophils Percent Auto 1.6 0 - 4 % [facility] Basophils Percent Auto 0.5 0 - 2 % [facility] NRBC Pct Auto 0.0 0.0 - 0.2 /100WBC [facility] Neutrophils Absolute Auto 3.8 2.0 - 8.3 x10*3/uL [facility] Imm Gran Abs Auto 0.03 0.00 - 0.03 X10*3/uL [facility] Lymphocytes Absolute Auto 1.7 1.2 - 4.9 X10*3/uL [facility] Monocytes Absolute Auto 0.7 0.1 - 1.2 X10*3/uL [facility] Eosinophils Absolute Auto 0.1 0.0 - 0.4 X10*3/uL [facility] Basophils Absolute Auto 0.0 0.0 - 0.2 X10*3/uL [facility] NRBC Abs Auto 0.000 0.0 - 0.012 X10*3/uL [facility] Blood Venous blood specimen / Unknown 08/25/2024 9:38 AM EST 08/25/2024 10:54 AM EST us Deysi Panchal MD LAB BLOOD ORDERABLES Fin al Result [facility] [address] [place] [phone] * HIV-1/2 Antigen and Antibodies, Fourth Generation, with Reflexes (08/25/2024 9:38 AM EST) HIV AB/AG Nonreactive Nonreactive [facility] Comment:HIV-1 p24 Ag and/or HIV-1/HIV-2 Ab not detected.A test result that is nonreactive does not exclude thepossibility of exposure to or infection with HIV-1 and/orHIV-2. Nonreactive results in this assay for individualswith prior exposure to HIV-1 and/or HIV-2 may be due toantigen and antibody levels that are below the limit ofdetection of this assay.The [employer] HIV Ag/Ab Combo assay result andsupplemental assay results should be interpreted inconjunction with the patient's clinical presentation,history and other laboratory results. If the results areinconsistent with clinical evidence, additional testing issuggested to confirm the result. Blood Venous blood specimen / Unknown 08/25/2024 9:38 AM EST 08/25/2024 10:54 AM EST us Deysi Panchal MD LAB BLOOD ORDERABLES Fin al Result Performing Organization Address [facility]/ZIP Co de Phone Number [facility] [address] [place] [phone] * (ABNORMAL) Comprehensive Metabolic Panel (08/25/2024 9:38 AM EST) Pathologist [facility] Sodium 141 135 - 145 mmol/L [facility] Potassium 3.9 3.3 - 5.1 mmol/L [facility] Chloride 113(H) 96 - 108 mmol/L [facility] Carbon Dioxide 21(L) 22 - 29 mmol/L [facility] Anion Gap 11(L) 12 - 20 [facility] Urea Nitrogen (BUN) 9 9 - 16 mg/dL [facility] Creatinine, Serum 0.71 0.5 - 1.4 mg/dL [facility] Estimated Glomerular Filt Rate >60 [facility] Comment:Chronic Kidney Disea se: Estimated GFR < 60 mL/min/1.79y2Kkrfox Kidney Disease: Estimated GFR < 15 mL/min/1.73m2 Glucose 96 60 - 115 mg/dL [facility] Calcium 9.0 8.4 - 10.2 mg/dL [facility] Bilirubin, Total 0.5 0.0 - 1.0 mg/dL [facility] Aspartate Amino Transferase 20 5 - 31 U/L [facility] Alanine Aminotransferase 12 0 - 31 U/L [facility] Total Protein 7.5 6.5 - 8.0 g/dL [facility] Albumin Level 3.9 3.5 - 5.0 g/dL [facility] Alkaline Phosphatase 64 39 - 117 U/L [facility] Blood Venous blood specimen / Unknown 08/25/2024 9:38 AM EST 08/25/2024 10:54 AM EST Deysi Panchal MD LAB BLOOD ORDERABLES Fin al Result [facility] [address] [place] [phone] * Chlamydia/Gonorrhea Vaginal Swab ([facility]) (08/23/2024) Only the most recent of2 resultswithin the time period is included. Chlamydia Vaginal Swab Negative Negative, Indeterminate, None Detected, Invalid, Specimen unsatisfactory for evaluation, Weakly Positive Gonorrhea Vaginal Swab Negative Negative, Indeterminate, None Detected, Invalid, Specimen unsatisfactory for evaluation, Weakly Positive Swab Vaginal structure / Unknown 08/23/2024 Historical Provider LAB MICROBIOLOGY - GENERA L ORDERABLES Final Result * Chlamydia/Gonorrhea Throat Swab ([facility]) (08/23/2024) Chlamydia Throat Swab Negative Gonorrhea Throat Swab Negative Swab 08/23/2024 Result [facility] Provider MD LAB MICROBIOLOGY - GENERA L ORDERABLES Final Result * Syphilis Antibodies ([facility]) (08/23/2024) Only the most recent of2 resultswithin the time period is included. Pathologist [facility] Syphilis Abs Nonreactive Borderline, Nonreactive, Weakly Reactive, Inconclusive, Specimen unsatisfactory for evaluation Blood Venous blood specimen / Unknown 08/23/2024 Result [facility] Provider MD LAB BLOOD ORDERABLES Purvi l Result * Hepatitis C Antibody ([place] [facility]) (08/23/2024) Only the most recent of2 resultswithin the time period is included. [facility] Hepatitis C Ab Nonreactive Blood 08/23/2024 Result [facility] MD LAB BLOOD ORDERABLES Purvi l Result * HIV Ab/Ag ([place] DP) (08/23/2024) Only the most recent of2 resultswithin the time period is included. [facility] HIV Ag/Ab Nonreactive Blood 08/23/2024 Result [facility] MD LAB BLOOD ORDERABLES Purvi l Result * POCT Urine (07/27/2024 1:56 PM EST) [facility] Preg Test, Ur Negative Negative, Indeterminate, None Detected, Invalid, Specimen unsatisfactory for evaluation, Weakly Positive QC Media Lot # [id number] Lot# Expiration Date [id number] Urine 07/27/2024 1:56 PM EST Result [facility] Cortney Olivas DO POINT OF CARE TEST ENTER/ADAM T ORDERABLES Final Result * THINPREP TIS PAP (06/24/2021 12:00 AM EST) [facility] Clinical Information: None given [facility] COMMENT SEE COMMENT [facility] Comment: EXPLANATORY NOTE: ? The Pap is a screening test for cervical cancer. It is ?? not a diagnostic test and is subject to false negative ?? and false positive results. It is most reliable when a ?? satisfactory sample, regularly obtained, is submitted ?? with relevant clinical findings and history, and when ?? the Pap result is evaluated along with historic and ?? current clinical information. ?? COMMENT: This Pap test has been evaluated with computer assisted technology. [facility] Gift Packer : SEE COMMENT [facility] Comment: MSM, CT(ASCP) CT screening location: [address] ??[phone] Interpretation/R esult: Negative for intraepithelial lesion or malignancy. [facility] LMP: NONE [facility]IVEN [facility] Prev. BX: NONE [facility]IVEN [facility] Prev. PAP: NONE [facility]IVEN [facility] Review Gift Packer : SEE COMMENT [facility] Comment: CMG, CT(ASCP) CT screening location: [address] ??[phone] SOURCE: None given [facility] Statement Of Adequacy: SEE COMMENT [facility] Comment: Satisfactory for evaluation. Endocervical/transformation zone component absent. Age and/or menstrual status not provided 06/24/2021 Effie Haile NP LAB PATHOLOGY ORDERABLES Final Result Performing Organization Address City/State/[facility] Co de Phone Number [facility] [address] from Last 3 Months or Most Recently Relevant to Health Maintenance [facility] Care Teams Flaring Machine Operator Relationship Specialty Start Date End Date Deysi Panchal MD [address] [place] [phone] PCP - General Internal Medicine 07/27/24
== END 2024-10-05 13:25 | disposition home or self-care (01) ==
LOC: HO.HGS 12:43
PROVIDERS: PCP Family Medicine; Visit Provider Surgery
DX: D17.21 Benign lipomatous neoplasm of skin and subcutaneous tissue of right arm (principal)
CPT/HCPCS: 11403

== ENCOUNTER 2024-10-19 13:45 | Outpatient (AMB) | payer MEDICAID, SELFPAY ==
--- NOTE | 2024-10-19 14:16 | MHC.OFFVIS ---
Vital Signs 10/19/24 14:25 Height 5 ft 6 in Weight 112 lb BMI 18.1 BP 120/80 Blood Pressure Location Lt brachial Position Sitting Intake Visit Reasons: s/p suture removal excision cyst arm Intake Note: Patient is seen in office for post op assessment post excision of cyst of the inner arm. Pt c/o:denies any concerns, here for suture removal Outpatient Services Director Required: No Accompanied by: Self / Same As Patient Allergies pollen extracts [POLLEN] Allergy (Unknown, Verified 10/19/24 14:25) UNKNOWN HPI HPI s/p suture removal excision cyst arm: Details: She is here for a follow-up after excision of a right upper arm lipoma. This was done under local anesthesia in the office. She tolerated procedure well and currently denies complaints. [facility] Medical History Skin lesion of right arm Review of Systems Const Denies chills and Denies fever(s) Physical Exam Vital Signs: Last Vital Signs BP 120/80 10/19/24 14:25 BMI result Body Mass Index 18.1 Const General: comfortable and no acute distress Resp Effort & Inspection: normal respiratory effort Extrem Other: Right upper arm excision site well healed, not infected, sutures intact Assessment & Plan Assessment & Plan (1) Skin lesion of right arm: Code(s): L98.9 - Disorder of the skin and subcutaneous tissue, unspecified Category: Medical Plan: Status post excision. The path report shows a lipoma. I removed her sutures I explained to her the benign nature of the pathology. She can follow up on a p.r.n. basis. Coding Level of Care Code Global (06581) Diagnoses Skin lesion of right arm L98.9
[2024-10-19 14:25] VITALS: BP 120/80; BMI 18.1
--- OUTSIDE RECORDS SUMMARY | 2024-10-19 16:08 | XMS_ITS | Encounter Summary ---
Author Organization [employer] Address [address] [facility] 7t [place] [address] Care Team Providers Care Clinical Nursing Manager Name Role Phone Deysi Panchal MD Primary Care Provider + Reason for Visit * Reason Comments Depo RV Encounter Details Date Type Department Care Team (Latest Contact Info) Description 10/19/2024 1:00 PM EDT Clinical Support [facility] MEDICINE [address] [place] [phone] Pat Lou RN Encounter for management and injection of injectable progestin contraceptive Social History Tobacco Use Types Packs/Day Years Used Date Smoking Tobacco: Never Smokeless Tobacco: Never Alcohol Use Standard Drinks/Week Comments Not Currently 0 (1 standard drink = 0.6 oz pur e alcohol) 1-2/month Housing Stability Answer Date Recorded What is your housing situation today? I have elizabethgaurav schmid 08/25/[address] you [...] PM EDT documented as of this encounter Progress Notes * Pta Lou RN - 10/19/2024 1:00 PM EDT SUBJECTIVE: Radha Sigala is a 24 y.o. year old female who presents for Depo RV Preferred language for medical information: [employer] Outreach Specialist needed: No Radha Sigala denies significant side effects from last injection. Standing order verified, last placed on 10/19/24. Patient has no known allergies. Immunization History Administered Date(s) Administered DTaP, 5 pertussis antigens 2000 HPV, Quadrivalent 03/30/2011, 06/11/2011, 10/13/2011, 08/24/2013 Hep A, ped/adol, 2 dose 04/01/2015, 01/03/2016 Hep B, Adolescent or Pediatric 2000, 2000, 2000 Hep B, adult 04/14/2021 Hib (HbOC) 2000, 2000, 2000, 04/20/2001 IPV 2000, 2000, 2000, 01/24/2004 Influenza injectable quadrivalent IIV4 with preservative 04/01/2015 Influenza injectable quadrivalent preservative free 04/04/2014, 04/09/2017, 06/05/2019, 04/14/2021,03/09/2022, 04/13/2023 Influenza, Split (incl. purified surface antigen) 05/16/2012 MMR 01/19/2001, 01/24/2004 Meningococcal MCV4P ACYW-135 05/16/2012, 10/25/2018 Pfizer Covid-19 Vaccine 12+ 10/08/2020, 03/23/2021 Pneumococcal Conjugate PCV 7 2000, 2000, 07/27/2001, 11/24/2001 Tdap 05/16/2012 Varicella 01/19/2001, 06/11/2011 OBJECTIVE: No LMP recorded. Patient has had an injection. There were no vitals filed for this visit. Lab Results Component Value Date PREGTESTUR Negative 07/27/2024 No results found for: RAPIDCHGONTR , GONORRHOEAEP , TRICHOMONASR Lab Results Component Value Date HEPCAB Nonreactive 08/25/2024 Social History Tobacco Use Smoking Status Never Smokeless Tobacco Never Sexually active: YES. Last unprotected sexual encounter was on 08/2024. intention: Do you (or your partner) want to get in the next year?: No, I don't want to become (10/19/2024 1:13 PM) Do you want to talk about contraception or prevention during your visit today?: No - I amalready using contraception (10/19/2024 1:13 PM) control method reported at intake: Injectables (10/19/2024 1:13 PM) control method at exit Reported: Injectables (10/19/2024 1:13 PM) How was contraception provided?: Provided on site (10/19/2024 1:13 PM) Contraceptive counseling was provided: Yes (10/19/2024 1:13 PM) Contraception counseling provided: Yes I emphasized that switching methods is common, and that they can discontinue using any method at any time. After today's discussion, they would like to continue to use Depoprovera . We discussed correct method use and indications for emergency contraceptive use. They can follow up at any time to discuss their contraceptive options, side effects they're experiencing, or to switch methods. Depo-Provera 150 mg/ml administered intramuscularly to: Left Deltoid. Medication was tolerated well. EDUCATION: The following side effects/prevention education were reviewed with Radha Sigala and they confirmed understanding Spotting Headache Weight gain Hair loss Mood changes Proper condom use Risk reduction behavior ASSESSMENT: Contraceptive Management PLAN: Radha Sigala scheduled for next Depo-Provera administration on Depo window 01/04/25-01/18/25 Labs ordered: No. Radha Sigala agreeable to plan. Future Appointments Date Time Provider Department Center 11/09/2024 11:30 AM Deysi Panchal MD MEDICINE [facility] 01/11/2025 1:00 PM [facility] RED TEAM NURSE MEDICINE [facility] Pat Lou RN documented in this encounter Plan of Treatment Upcoming Encounters Date Type Department Care Team (Late st Contact Info) Description 11/09/2024 11:30 AM EDT Office Visit [facility] MEDICINE [address] [place] [phone] Deysi Panchal MD [address] [place] [phone] 01/11/2025 1:00 PM EDT Clinical Support [address] [address] documented as of this encounter Procedures Procedure Name Priority Date/Time Associated Diagnosis Comments POCT , URINE Routine 10/19/2024 1:32 PM EDT Encounter for management and injection of injectable progestin contraceptive documented in this encounter Results * POCT Urine (10/19/2024 1:32 PM EDT) Preg Test, Ur Negative Negative, Indeterminate, None Detected, Invalid, Specimen unsatisfactory for evaluation, Weakly Positive QC Media Lot # [id number] Lot# Expiration Date [id number] Urine 10/19/2024 1:32 PM EDT Deysi Panchal MD POINT OF CARE TEST ENTER /EDIT ORDERABLES Final Result documented in this encounter Visit Diagnoses Diagnosis Encounter for management and injection of injectable progestin contraceptive documented in this encounter Administered Medications Active Administered Medications - up to 3 most recent administrations Medication Order MAR Action Action Date Dose Rate Site medroxyPROGESTERone (Depo-Provera) injection 150 mg 150 mg, Intramuscular, Every 3 months, First dose on Wed10/19/24 at 1300, For 4 dosesIndications:Encounter for management and injection of injectable progestin contraceptive Given 10/19/2024 1:00 PM EDT 150 mg Left Deltoid documented in this encounter Care Teams Clinical Nursing Manager Relationship Specialty Start Date End Date Deysi Panchal MD [address] [place] [address] PCP - General Internal Medicine 07/27/24 documented as of this encounter
--- OUTSIDE RECORDS SUMMARY | 2024-10-19 16:08 | XMS_ITS | Encounter Summary ---
Author Organization [employer] Address [address] [facility] [place] [address]t [place] [address] Care Team Providers Care Data Management Associate Name Role Phone Suellen Galarza Primary Care Provider [phone] Misbah East Primary Care Provider Unavail able Nathalie Powell MD Primary Care Provide r Deysi Panchal MD Primary Care Provider + Reason for Visit * Reason Onset Date Comments Appointment Request 12/10/2022 Encounter Details Date Type Department Care Team (Late st Contact Info) Description 12/10/2022 Telephone [facility] MEDICINE [address] [place] [address] Suellen Galarza FNP [address] [place] [address] Dept [place] [address] Appointment Request Social History Tobacco Use Types [...] pt regarding message below. Pt agrees to OK for Depo on 01/26 as pt returns [...] Description 11/09/2024 11:30 AM EDT Office Visit [address] [address] Desyi Panchal MD [address] [place] [address] 01/11/2025 1:00 PM EDT Clinical Support [address] [address] documented as of this encounter Visit Diagnoses Not on filedocumented in this encounter Care Teams Data Management Associate Relationship Specialty Start Date End Date Suellen Galarza FNP PCP - General Family Medicine 02/19/22 01/03/23 Misbah East AGNP PCP - General Family Medicine 01/04/23 03/04/23 Nathalie Powell MD [address] [place] [phone] PCP - General Internal Medicine 03/05/23 07/26/24 Deysi Panchal MD [address] [place] [phone] PCP - General Internal Medicine 07/27/24 documented as of this encounter
--- OUTSIDE RECORDS SUMMARY | 2024-10-19 16:08 | XMS_ITS | Clinical Summary ---
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 Phone Deysi Panchal MD [...] HOURS NEEDED 18 g 08/25/19 25 Active Hospital, Clinic, or Other Facility Administered Medication Ordered Dose Route Frequency Start Date End Date Status medroxyPROGESTERone (Depo-Provera) injection 150 mgIndications:Encounte r for management and injection of injectable progestin contraceptive 150 mg IM Every 3 months 10/19/2024 10/14/2025 Active Active Problems Problem Noted Date Diagnosed [...] Encounters Date Type Department Care Team Description 10/19/2024 1:00 PM EDT Clinical Support [facility] [place] [address] Pat Lou RN Encounter for management and injection of injectable progestin contraceptive 10/19/2024 Travel 09/08/2024 Population Health Risk Score [facility] ([facility]) Department [address] [phone] Provider, Population Health Generic 08/31/2024 Orders Only [facility] [place] [address] Lela Colon RN 08/25/2024 9:15 AM EST Office Visit [facility] [place] [address] Deysi Panchal MD Mild persistent asthma without complication (Primary Dx); Recurrent major depressive disorder, in partial remission (CMS/HCC); Exercise counseling; Seasonal allergies; Class 2 obesity due to excess calories without serious comorbidity with body mass index (BMI) of 39.0 to 39.9 in adult; Dermoid cyst of arm, right; Skin tag; Dietary counseling 08/25/2024 Travel 08/22/2024 Telephone [facility] [place] [address] Deysi Panchal MD Chart prep 08/11/2024 Patient Outreach [facility] [place] [address] Deysi Panchal MD Pre-visit Planning (Unable to complete PVP screening patient ended call) 08/02/2024 Orders Only [facility] [place] [address] Lela Colon, JUAN 07/27/2024 1:00 PM EST Clinical Support [facility] [place] [address] Juanita Carlos, JUAN Encounter for management and injection of injectable progestin contraceptive 07/27/2024 Travel 07/27/2024 Refill [facility] [place] [address] Juanita Carlos, RN Encounter for management and injection of [...] Description 11/09/2024 11:30 AM EDT Office Visit [facility] MEDICINE [address] [place] [phone] Deysi Panchal MD [address] [place] [address] 01/11/2025 1:00 PM EDT Clinical Support [facility] MEDICINE [address] [place] [address] Health Maintenance Due Date Last Done Comments Alcohol/Substance Use Screening 2012 Pneumococcal Vaccine: Pediatrics (0 to 5 Years) and At-Risk Patients (6 to 49) Years) (1 of 2 - PCV) 01/17/2019 11/24/2001, 07/27/2001, 2000, Additional history exists DTaP/Tdap/Td Vaccines (3 - Td or Tdap) 05/16/2022 05/16/2012, 2000 COVID-19 Vaccine (3 - season) 2024 03/23/2021, 10/08/2020 Influenza Vaccine (#1) 2024 , 03/09/2022, 04/14/2021, Additional history exists Pap Smear 06/24/2024 06/24/2021 Depression Screening 08/25/2025 08/25/2024, 08/25/19 25 SDOH Screening 08/25/2025 08/25/2024 Tobacco Screening 08/25/2025 08/25/2024 Family Planning (PISQ) 10/19/2025 10/19/2024 Lipid Panel 08/25/2029 08/25/2024, 11/04/2021 Zoster Vaccines [...] management and injection of injectable progestin contraceptive CBC WITH AUTO DIFFERENTIAL Routine 08/25/2024 9:38 [...] Recently Relevant to Health Maintenance Results * POCT Urine (10/19/2024 1:32 PM EDT) Only the most recent of2 resultswithin the time period is included. Pathologist [facility] Preg Test, Ur Negative Negative, Indeterminate, None Detected, Invalid, Specimen unsatisfactory for evaluation, Weakly Positive QC Media Lot # [id number] Lot# Expiration Date [id number] Urine 10/19/2024 1:32 PM EDT Deysi Panchal MD POINT OF CARE TEST ENTER /EDIT ORDERABLES Final Result * Syphilis Screen (08/25/2024 9:38 AM EST) Pathologist [facility] Syphilis Screen Nonreactive Nonreactive [facility] Blood 08/25/2024 9:38 AM EST 08/25/2024 10:54 AM EST Deysi Panchal MD LAB BLOOD ORDERABLES Fin al Result Performing Organization Address [facility]/ZIP Co de Phone Number [facility] [address] [place] [phone] [phone] * (ABNORMAL) Vitamin D, 25-Hydroxy, Total, Immunoassay (08/25/2024 9:38 AM EST) Vitamin D 25-OH Total 15.0(L) >30 ng/mL [facility] Comment:Health Based Referen ce Values*< 20 ng/mL [id number] ng/mL Insufficient> 30 ng/mL Sufficient*Jose DE LEON. [...] ORDERABLES Fin al Result Performing Organization Address City/[facility]/ZIP Co de Phone Number [facility] [address] [place] [address] [phone] * TSH with Reflex to Free T4 (08/25/2024 9:38 AM EST) TSH reflex Free T4 0.62 0.32 - 4.0 uIU/mL [facility] Blood 08/25/2024 9:38 AM EST 08/25/2024 10:54 AM EST Deysi Panchal MD LAB BLOOD ORDERABLES Fin al Result Performing Organization Address [facility]/ZIP Co de Phone Number [facility] [address] [place] [address] [phone] * Lipid Panel with Reflex to Direct LDL (08/25/2024 9:38 AM EST) Triglycerides 67 <150 mg/dL [facility] Comment:Desirable Triglyceri de: less than [...] 190 mg/dL HDL Cholesterol 41 >40 mg/dL [facility] Comment:Desirable HDL: great er than 40 mg/dL Note: This HDL assay may give artificially low results in patients with liver disease. Blood 08/25/2024 9:38 AM EST 08/25/2024 10:54 AM EST Deysi Panchal MD LAB BLOOD ORDERABLES Fin al Result Performing Organization Address City/[facility]/ZIP Co de Phone Number [facility] [address] [place] [address] [phone] * Hepatitis Panel, General (08/25/2024 9:38 [...] Result [facility] [address] [place] [phone] [phone] * (ABNORMAL) CBC auto differential (08/25/2024 [...] Result [facility] [address] [place] [address] [phone] * HIV-1/2 Antigen and Antibodies, Fourth Generation, with Reflexes (08/25/2024 9:38 AM EST) HIV AB/AG Nonreactive Nonreactive [facility] Comment:HIV-1 p24 Ag and/or HIV-1/HIV-2 Ab not detected.A test result that is nonreactive does not exclude thepossibility of exposure to or infection with HIV-1 and/orHIV-2. Nonreactive results in this assay for individualswith prior exposure to HIV-1 and/or HIV-2 may be due toantigen and antibody levels that are below the limit ofdetection of this assay.The [employer] HIV Ag/Ab Combo assay result andsupplemental assay [...] Result [facility] [address], [place] [phone] * (ABNORMAL) Comprehensive Metabolic Panel (08/25/2024 9:38 AM EST) Sodium 141 135 - 145 mmol/L [facility] [...] Kidney Disea se: Estimated GFR < 60 mL/min/1.84l1Bskmye Kidney Disease: Estimated GFR < 15 mL/min/1.73m2 [...] Result [facility] [address] [place] [address] [phone] * Chlamydia/Gonorrhea Vaginal Swab ([facility]) (08/23/2024) Only the most recent of2 resultswithin the time period is included. Chlamydia Vaginal Swab Negative Negative, Indeterminate, None Detected, Invalid, Specimen unsatisfactory for evaluation, Weakly Positive Gonorrhea Vaginal Swab Negative Negative, Indeterminate, None Detected, Invalid, Specimen unsatisfactory for evaluation, Weakly Positive Swab Vaginal structure / Unknown 08/23/2024 Result [facility] Historical Provider MD LAB MICROBIOLOGY - GENERA L ORDERABLES Final Result * Chlamydia/Gonorrhea Throat Swab ([facility]) (08/23/2024) Chlamydia Throat Swab Negative Gonorrhea Throat Swab Negative Swab 08/23/2024 Result [facility] Historical Provider LAB MICROBIOLOGY - GENERA L ORDERABLES Final Result * Syphilis Antibodies ([facility]) (08/23/2024) Only the most recent of2 resultswithin the time period is included. Syphilis Abs Nonreactive Borderline, Nonreactive, Weakly Reactive, Inconclusive, Specimen unsatisfactory for evaluation Blood Venous blood specimen / Unknown 08/23/2024 Result [facility] Historical Provider MD LAB BLOOD ORDERABLES Purvi l Result * Hepatitis C Antibody ([facility]) (08/23/2024) Only the most recent of2 resultswithin the time period is included. Hepatitis C Ab Nonreactive Blood 08/23/2024 Historical Provider MD LAB BLOOD ORDERABLES Purvi l Result * HIV Ab/Ag ([place] [facility]) (08/23/2024) Only the most recent of2 resultswithin the time period is included. HIV Ag/Ab Nonreactive Blood 08/23/2024 Historical Provider MD LAB BLOOD ORDERABLES Purvi l Result * THINPREP TIS PAP (06/24/2021 12:00 AM EST) Clinical Information: None given [facility] [...] has been evaluated with computer assisted technology. 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 [facility] LMP: NONE [facility]IVEN [facility] Prev. BX: NONE [facility]IVEN [facility] Prev. PAP: NONE GIVEN [facility] Review [employer] : SEE COMMENT [facility] Comment: CMG, CT(ASCP) CT screening location: [address] ??[phone] SOURCE: None given [facility] Statement Of Adequacy: SEE COMMENT [facility] Comment: Satisfactory for evaluation. Endocervical/transformation zone component absent. 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
--- OUTSIDE RECORDS SUMMARY | 2024-10-19 16:08 | XMS_ITS | Encounter Summary ---
Author Organization [employer] Address [address] [facility] 7t [place] [address] Care Team Providers Care Rn Med Surg Name Role Phone Deysi Panchal MD Primary Care Provider + Encounter Details Date Type Department Care Team (Latest Contact Info) Description 10/19/2024 Travel Social History Tobacco Use Types Packs/Day Years [...] PM EDT documented as of this encounter Plan of Treatment Upcoming Encounters Date Type Department Care Team (Late st Contact Info) Description 11/09/2024 11:30 AM EDT Office Visit [facility] MEDICINE [address] [place] [phone] Deysi Panchal MD [address] [place] [phone] 01/11/2025 1:00 PM EDT Clinical Support [address] [address] documented as of this encounter Visit Diagnoses Not on filedocumented in this encounter Care Teams Rn Med Surg Relationship Specialty Start Date End Date Deysi Panchal MD [address] [place] [phone] PCP - General Internal Medicine 07/27/24 documented as of this encounter
== END 2024-10-19 14:31 | disposition home or self-care (01) ==
LOC: HO.HGS 13:46
PROVIDERS: PCP Family Medicine; Visit Provider Surgery
DX: L98.9 Disorder of the skin and subcutaneous tissue, unspecified (principal)
CPT/HCPCS: 99024

== ENCOUNTER → 2024-10-19 13:45 | Outpatient (BNVA) | payer MEDICAID, SELFPAY | PROVIDERS: PCP Family Medicine; Visit Provider Surgery | DX: Z48.02 Encounter for removal of sutures (principal); Z87.2 Personal history of diseases of the skin and subcutaneous tissue; Z98.890 Other specified postprocedural states | CPT/HCPCS: 99212 ==

== ENCOUNTER 2025-06-04 17:35 | Outpatient (REF) | payer MEDICAID, SELFPAY ==
[2025-06-05 12:29] LABS: Bacterial Vaginosis PCR NEGATIVE (Negative); Candida Group PCR DETECTED (Not Detect); Candida glab krusei PCR NOT DETECTED (Not Detect); Trichomonas vaginalis PCR NOT DETECTED (Not Detect)
== END 2025-06-04 17:36 | disposition home or self-care (01) ==
LOC: HO.HHCLNP 17:35
PROVIDERS: Visit Provider Nurse Practitioner
DX: N89.8 Other specified noninflammatory disorders of vagina (principal)
CPT/HCPCS: 81515